=== PATIENT | male | born 1995 ===

== ENCOUNTER 2024-10-03 07:51 | Emergency (ER) | payer OTHER ==
[~2024-10-03] VITALS: Ht 177.8 cm; Wt 93.2 kg
[2024-10-03 07:54] VITALS: BP 132/79; PULSE 99; TEMP 97.8; O2SAT 100
[2024-10-03 08:06] VITALS: RESP 16
[2024-10-03 08:32] LABS: BASOPHILS # (AUTO) 0.1 X10'3 (0-0.2); BASOPHILS % (AUTO) 0.8 % (0-1); EOSINOPHILS # (AUTO) 0.5 X10'3 (0-0.9); EOSINOPHILS % (AUTO) 4.5 % (0-6); HEMATOCRIT 40.6 % (42.0-52.0); HEMOGLOBIN 12.9 g/dl (14.0-17.9); LYMPHOCYTES # (AUTO) 1.9 X10'3 (1.1-4.8); LYMPHOCYTES % (AUTO) 18.8 % (21-51); MEAN CORPUSCULAR HEMOGLOBIN 18.4 PG (27.0-31.0); MEAN CORPUSCULAR HGB CONC 31.7 g/dL (33.0-36.5); MEAN CORPUSCULAR VOLUME 57.8 FL (78-98); MEAN PLATELET VOLUME 8.8 FL (7.4-10.4); MONOCYTES # (AUTO) 1.1 X10'3 (0-0.9); MONOCYTES % (AUTO) 10.4 % (2-12); NEUTROPHILS # (AUTO) 6.6 X10'3 (1.8-7.7); NEUTROPHILS % (AUTO) 65.5 % (42-75); PLATELET COUNT 259 X10'3 (140-440); RED BLOOD COUNT 7.02 X10'6 (4.70-6.10); RED CELL DISTRIBUTION WIDTH 18.7 % (11.5-14.5); WHITE BLOOD COUNT 10.1 X10'3 (4.5-11.0)
[2024-10-03 08:50] LABS: PLATELET ESTIMATE NORMAL
[2024-10-03 08:51] LABS: HYPOCHROMASIA 3+; POLYCHROMASIA FEW
[2024-10-03 08:52] LABS: ANISOCYTOSIS 2+; MICROCYTOSIS 3+; SCHISTOCYTES FEW; TARGET CELLS 2+
[2024-10-03 08:56] LABS: ALBUMIN 4.2 G/DL (3.4-5.0); ANION GAP 12 (8-16); CALCIUM 9.1 MG/DL (8.5-10.1); CHLORIDE 100 MMOL/L (99-107); CREATININE 1.38 MG/DL (0.60-1.10); ETHANOL < 10 MG/DL (<10); GLUCOSE 72 MG/DL (70-104); POTASSIUM 3.2 MMOL/L (3.5-5.1); SODIUM 139 MMOL/L (135-145); THYROID STIMULATING HORMONE 1.41 ulU/ml (0.34-4.50); TOTAL CARBON DIOXIDE 26.8 MMOL/L (24-32); eCRCL 82 ML/MIN; eGFR 61 ML/MIN
[2024-10-03 09:12] LABS: BLOOD UREA NITROGEN 21 MG/DL (7-18); BUN/CREATININE RATIO 15.2 (10.0-20.0)
--- NOTE | 2024-10-03 10:17 | Physician Documentation ---
History of Present Illness ~ Chief Complaint: 5150 Stated Complaint: 5150 Time Seen by MD: 08:08 Source: family Mode of Arrival: Ambulatory, Police HPI 28-year-old male history of schizophrenia presenting for agitation. He reports screaming and yelling in from his parent's house. He is unable to provide any history Medication Reconciliation Allergies: Coded Allergies: No Known Allergies (Unverified , 10/03/24) Past Medical History Smoking Status: Unknown if ever smoked Review of Systems Unable to obtain complete ROS: altered mental status Physical Exam Vital Signs: Temperature: 97.8, Source: Oral, Heart Rate: 99, Respiratory Rate: 16, BP: 132/79, Pulse Oximetry: 100, Weight: 93.180 Oxygen Flow Rate: 0 Physical Exam Well-appearing no distress Psych poor eye contact poor judgment poor insight Neuro awake alert unable to assess orientation Progress Progress Note Patient ran out of the emergency department and had to be restrained by security. He was returned to the room and was agreeable to p.o. medication Patient did not take any in his p.o. medication and ran out again had to be restrained again at 11:08 a.m. Results/Orders Reviewed/noted all lab results: Yes Results/Orders Orders - SHERLYN SNOWDEN MD Cbc/Diff (10/03/24 07:58) Urinalysis (10/03/24 07:58) Drug Screen, Urine (10/03/24 07:58) Med Rec (10/03/24 07:58) Close Observation Level (10/03/24 07:58) Covid19 Binax Poc Result Entry (10/03/24 07:58) Pathology Review (10/03/24 08:20) 1799.11 (10/03/24 10:18) Close Observation Level (10/03/24 10:18) Completed Orders - SHERLYN SNOWDEN MD Ethanol (10/03/24 07:58) TSH (10/03/24 07:58) BMP (10/03/24 07:58) Regular Diet (10/03/24 Lunch) Lorazepam Tablet (Ativan Tablet) (10/03/24 10:20) Olanzapine Disint. Tablet (Zyprexa Zydis (10/03/24 10:35) Olanzapine Im (Zyprexa I.M. Im On (10/03/24 11:05) Vital Signs 10/03/24 10/03/24 07:54 08:06 Temp 97.8 Pulse 99 Resp 16 16 B/P (MAP) 132/79 Pulse Ox 100 O2 Flow Rate 0 Laboratory Tests Test 10/03/24 08:00 10/03/24 08:20 SARS-CoV-2 Antigen (Rapid) Negative White Blood Count 10.1 Red Blood Count 7.02 H Hemoglobin 12.9 L Hematocrit 40.6 L Mean Corpuscular Volume 57.8 L Mean Corpuscular Hemoglobin 18.4 L Mean Corpuscular Hemoglobin Concent 31.7 L Red Cell Distribution Width 18.7 H Platelet Count 259 Mean Platelet Volume 8.8 Neutrophils (%) (Auto) 65.5 Lymphocytes (%) (Auto) 18.8 L Monocytes (%) (Auto) 10.4 Eosinophils (%) (Auto) 4.5 Basophils (%) (Auto) 0.8 Neutrophils # (Auto) 6.6 Lymphocytes # (Auto) 1.9 Monocytes # (Auto) 1.1 H Eosinophils # (Auto) 0.5 Basophils # (Auto) 0.1 CBC Comment Platelet Estimate Normal Red Blood Cell Morphology Perf Polychromasia Few Hypochromasia 3+ Basophilic Stippling Anisocytosis 2+ Microcytosis 3+ Target Cells 2+ Schistocytes Few Sodium Level 139 Potassium Level 3.2 L Chloride Level 100 Carbon Dioxide Level 26.8 Anion Gap 12 Blood Urea Nitrogen 21 H Creatinine 1.38 H Estimated GFR/1.73 m2 61 BUN/Creatinine Ratio 15.2 Glucose Level 72 Calcium Level 9.1 Albumin 4.2 Thyroid Stimulating Hormone (TSH) 1.41 Chemistry Comments Ethyl Alcohol Level < 10 Re-Evaluation Re-Evaluation : Progress Labs independently interpreted shows no leukocytosis Medical Decision Making Differential Dx:Considerations: Include: Alcohol abuse, Anxiety, Bipolar d isorder, Conversion disorder, Depression, Encephaloathy, Panic disorder, Personality disorder Departure [facility]position: [facility] Impression: Primary Impression: Psychosis Qualified Codes: F29 - Unspecified psychosis not due to a substance or known physiological condition Additional Instructions: Transfer orders for [facility]: At this time there is no evidence of an emergent medical condition that would preclude (admission/transfer) to a psychiatric unit via [facility] for further psychiatric, as well as medical evaluation and treatment. At this time I have no reason to believe that transfer via [facility] would have serious medical compromise in the patient's health. Referrals: NO PRIMARY CARE PROVIDER (PCP) Signature Scribe Signature: na Attestation: SHERLYN Hernandez MD October 03, 2024 10:17
[2024-10-03] MEDS ORDERED: LORazepam 1 MG tablet PO ONE (10:20)
[2024-10-03] MEDS ORDERED: OLANZapine 5mg rapidly disint. tablet PO ONE (10:35)
[2024-10-03] MEDS ORDERED: OLANZapine **IM** 10 mg inj. IM ONE (11:05)
== END 2024-10-03 10:32 | disposition left against medical advice (07) ==
LOC: ER 07:51
DX: F29 Unspecified psychosis not due to a substance or known physiological condition (principal); F20.9 Schizophrenia, unspecified; Z20.822 Contact with and (suspected) exposure to COVID-19
CPT/HCPCS: 36415; 80048; 80320; 84443; 85008; 85025; 87811; 99285